=== PATIENT | female | born 1985 ===

== ENCOUNTER 2019-08-15 05:54 | Inpatient (IN) | payer BC ==
[2019-08-15] MEDS ORDERED: Promethazine HCl 25 MG/ML VIAL IM PRN ×2 (06:00→07:30)
[2019-08-15] MEDS ORDERED: Butorphanol Tartrate 1 MG/ML VIAL SLOW IVP PRN (06:00)
[2019-08-15] MEDS ORDERED: Lactated Ringer's 1,000 ML IV SCH (06:00)
[2019-08-15] MEDS ORDERED: Ondansetron PF 4 MG/2 ML Vial IVP PRN ×3 (06:00→11:25)
[2019-08-15] MEDS ORDERED: CEFAZOLIN 2 GM in Premix Bag 1 BAG IVPB SCH (06:00)
[2019-08-15] MEDS ORDERED: hydrALAZINE 20 MG/ML VIAL SLOW IVP PRN ×2 (06:00→11:25)
[2019-08-15 06:16] VITALS: BMI 29.5
[2019-08-15 06:42] LABS: Hemoglobin 12.1 g/dL (12.0-16.0); Mean Corpuscular Hemoglobin 28.9 pg (27.0-31.0); Mean Corpuscular Volume 84.9 fL (78.0-98.0); Mean Platelet Volume 7.1 fL (7.4-10.4); Platelet Count 307 thou/uL (130-400); Red Blood Cell (RBC) Count 4.19 mill/uL (4.20-5.40); White Blood Cell (WBC) Count 6.8 thou/uL (4.8-10.8)
[2019-08-15] MEDS ORDERED: Bicitra 30 ML UDCUP ONE (06:58)
[2019-08-15] MEDS ORDERED: Oxytocin 10 UNITS/ML VIAL ONE ×4 (07:01→08:32)
[2019-08-15] MEDS ORDERED: EPHEDRINE 25 MG/5 ML SYRINGE ONE (07:01)
[2019-08-15] MEDS ORDERED: PHENYLEPHRINE-NS 100 MCG/ML 10 ML SYRINGE ONE (07:01)
[2019-08-15] MEDS ORDERED: MORPHINE 5 MG/10 ML PF VIAL ONE (07:02)
[2019-08-15 07:20] LABS: HBSAg Index 0.19 S/CO (0-0.99); Hep B Surf Ag Non-Reactive S/CO (NonReactive); Syphilis Antibody Nonreactive (Nonreactive); Syphilis Antibody Index 0.03 S/CO (<1.00 Non-Reactive)
[2019-08-15] MEDS ORDERED: Methylergonovine 0.2 MG/ML VIAL ONE (07:24)
[2019-08-15] MEDS ORDERED: Carboprost 250 MCG/ML AMP ONE (07:24)
[2019-08-15] MEDS ORDERED: Ketorolac Tromethamine 30 MG/ML VIAL IVP SCH (07:30)
[2019-08-15] MEDS ORDERED: Naloxone HCl 0.4 mg/ml Vial IVP PRN ×2 (07:30)
[2019-08-15] MEDS ORDERED: Naloxone HCl 0.4 mg/ml Vial IV PRN (07:30)
[2019-08-15] MEDS ORDERED: HYDROmorphone 2 MG/ML VIAL SLOW IVP PRN (07:30)
[2019-08-15] MEDS ORDERED: L&D-Morphine 4 MG/ML VIAL SLOW IVP PRN (07:30)
[2019-08-15] MEDS ORDERED: Communication Order-Pharmacy FS SCH (07:30)
[2019-08-15] MEDS ORDERED: Promethazine HCl 25 MG SUPP PR PRN (07:30)
[2019-08-15] MEDS ORDERED: Meperidine HCl/PF 25 MG/ML VIAL SLOW IVP PRN (07:30)
[2019-08-15] MEDS ORDERED: diphenhydrAMINE 50 MG/ML VIAL IVP PRN (07:30)
[2019-08-15] MEDS ORDERED: Ondansetron HCl/PF 4 MG/2 ML Vial IVP PRN (07:30)
[2019-08-15] MEDS ORDERED: Bicitra 30 ML UDCUP PO SCH (07:45)
[2019-08-15] MEDS ORDERED: Ondansetron PF 4 MG/2 ML Vial ONE (08:14)
[2019-08-15] MEDS ORDERED: Fentanyl 100 MCG/2 ML VIAL ONE (08:14)
[2019-08-15] MEDS ORDERED: Ketorolac Tromethamine 30 MG/ML VIAL ONE (09:13)
[2019-08-15] MEDS: Ketorolac Tromethamine 30 MG/ML VIAL IVP PRN ×3 (09:16→21:10)
[2019-08-15] MEDS ORDERED: Morphine 4 MG/ML VIAL ONE (09:45)
[2019-08-15] MEDS ORDERED: Morphine 4 MG/ML VIAL IV SCH (10:00)
[2019-08-15] MEDS ORDERED: Bisacodyl 10 MG SUPP PR PRN (11:25)
[2019-08-15] MEDS ORDERED: Simethicone Chewable 80 MG TAB PO PRN (11:25)
[2019-08-15] MEDS ORDERED: Lanolin Ointment 7 GM TUBE TOP PRN (11:25)
[2019-08-15] MEDS ORDERED: diphenhydrAMINE 25 MG CAP PO PRN (11:25)
[2019-08-15] MEDS ORDERED: Meperidine HCl/PF 25 MG/ML VIAL IM PRN (11:25)
--- NOTE | 2019-08-15 12:53 | OP ---
DATE OF PROCEDURE: 08/15/2019 PREOPERATIVE DIAGNOSES: 1. Previous section x2. 2. 39 weeks' gestation. POSTOPERATIVE DIAGNOSES: 1. Previous section x2. 2. 39 weeks' gestation. PROCEDURE PERFORMED: Repeat low transverse section. STOCK CRANE OPERATOR: Corinne Maguire MD. COMPLICATIONS: None. ANESTHESIA: Spinal per Dr. Becerra. ESTIMATED BLOOD LOSS: 600 mL. QBL: Pending. OPERATIVE FINDINGS: 1. Low-transverse hysterotomy without extension. 2. No intraabdominal adhesive disease. 3. Vigorous male . Weight and Apgars pending at the time of dictation. 4. Normal-appearing uterus, tubes, and ovaries bilaterally. 5. Uterus firm after delivery of normal placenta with three-vessel cord. DESCRIPTION OF PROCEDURE: The patient was taken back to the OR with IV fluids running. When she was in the OR, spinal anesthesia was obtained, and the patient was placed in dorsal supine position with a left lateral tilt. 2 g of Ancef prophylactic antibiotics were administered through the patient's IV. Ocampo catheter was placed using sterile technique. The abdomen was prepped and draped in normal fashion for section. Surgeons were gowned and gloved. The abdomen was tested, and anesthesia was found to be adequate. A Pfannenstiel skin incision was made with a scalpel. The skin incision was carried down through the subcutaneous tissue to the fascia. Once the fascia was reached, it was incised in the midline and extended superolaterally using curved Kinney scissors. Maris clamps were placed at the superior border of the fascia, which was sharply and bluntly dissected off the rectus abdominis muscles. In similar fashion, Maris clamps were placed at the inferior border of the fascia, which was dissected down towards the level of the pubic symphysis. The rectus muscles and peritoneum were bluntly entered and stretched in the midline. An Jacob O retractor was placed into the peritoneal cavity for retraction, visualization, and protection of the wound. A low transverse hysterotomy was made with a scalpel. The hysterotomy was bluntly entered and stretched using the Verde maneuver. The infant was delivered vertex through the hysterotomy without difficulty. The nose and mouth were suctioned. The cord was doubly clamped and cut. The was handed off to special care nurses in attendance. Cord blood was collected. The placenta was delivered. The uterus was exteriorized, massaged to firm, and cleared of clot and debris. The hysterotomy was then closed using Monocryl suture in a running locked fashion. An additional [id number] suture was placed in each corner of the hysterotomy for hemostasis. Once hemostasis was assured, uterus was noted to be firm. The pelvis was copiously irrigated, dried, and examined. No areas of bleeding were noted at the hysterotomy. The rectus muscles and fascia were examined, and any small areas of bleeding were controlled with Bovie cauterization. The Jacob retractor was removed from the abdominal cavity prior to examining the fascia and muscle. The rectus fascia was reapproximated from corner to corner in a running fashion with PDS suture. Subcutaneous layer was irrigated and dried. Any small areas of bleeding were controlled with Bovie cauterization. The subcutaneous tissue was reapproximated in a series of interrupted plain gut sutures. The skin was closed with 4-0 Monocryl and dressed with Dermabond dressing. The patient tolerated the procedure well. There were no complications. The counts were correct. Job ID: [id number]
[2019-08-15] MEDS ORDERED: Sodium Chloride 0.9% 10 ML ONE (16:20)
[2019-08-15] MEDS ORDERED: HYDROcodone/Acetaminophen 5/325 mg Tablet PO PRN ×3 (17:50→19:30)
[2019-08-15] MEDS: HYDROcodone/Acetaminophen 5/325 mg Tablet PO PRN ×2 (18:03→22:19)
[2019-08-15] MEDS: Ferrous Sulfate 325 MG TAB PO SCH (19:38)
[2019-08-15] MEDS: Docusate Calcium (SURFAK) 240 MG CAP PO SCH (23:29)
[2019-08-16] MEDS ORDERED: Sodium Chloride 0.9% 10 ML ONE (03:59)
[2019-08-16] MEDS: Ketorolac Tromethamine 30 MG/ML VIAL IVP PRN (04:01)
[2019-08-16] MEDS: HYDROcodone/Acetaminophen 5/325 mg Tablet PO PRN ×5 (04:02→22:23)
[2019-08-16 05:58] LABS: Hemoglobin 10.4 g/dL (12.0-16.0); Mean Corpuscular HGB CONC 33.7 g/dL (32.0-36.0); Mean Corpuscular Hemoglobin 29.2 pg (27.0-31.0); Mean Corpuscular Volume 86.7 fL (78.0-98.0); Mean Platelet Volume 7.2 fL (7.4-10.4); Platelet Count 250 thou/uL (130-400); RBC Distribution Width 14.1 % (11.5-14.5); Red Blood Cell (RBC) Count 3.55 mill/uL (4.20-5.40); White Blood Cell (WBC) Count 5.9 thou/uL (4.8-10.8)
--- NOTE | 2019-08-16 07:12 | PDOC.PP ---
Post Progress Note Post Day #: 1 PO intake tolerated: yes Flatus: yes Ambulation: yes Vital Signs (12 hours) Temp Pulse Resp BP Pulse Ox 08/16/19 05:58 97.9 F 53 L 14 124/72 08/16/19 01:48 98.0 F 55 L 14 100/59 L 08/15/19 21:16 97.9 F 65 14 112/70 97 Weight Weight 194 lb Result Diagrams: 08/16/19 05:27 Additional Labs: Post Labs Blood Type O NEGATIVE 08/15/19 07:43 Hep Bs Antigen Non-Reactive S/CO (NonReactive) 08/15/19 06:17 - Assessment/Plan Post op day 1 from repeat c/s. Vitals stable. Doing well. Routine OB post op care.
[2019-08-16] MEDS: Ferrous Sulfate 325 MG TAB PO SCH ×2 (07:21→23:45)
[2019-08-16] MEDS: Prenatal Vitamin 1 TAB PO SCH (08:11)
[2019-08-16] MEDS: Docusate Calcium (SURFAK) 240 MG CAP PO SCH ×2 (08:11→21:08)
[2019-08-16] MEDS ORDERED: Adacel (T-DAP) 0.5 ML SYRINGE IM ONE (09:00)
[2019-08-16] MEDS: Ibuprofen 800 MG TAB PO SCH ×2 (14:06→21:08)
[2019-08-17] MEDS: HYDROcodone/Acetaminophen 5/325 mg Tablet PO PRN ×3 (02:26→11:33)
[2019-08-17] MEDS: Ibuprofen 800 MG TAB PO SCH (05:52)
[2019-08-17] MEDS: Prenatal Vitamin 1 TAB PO SCH (07:19)
[2019-08-17] MEDS: Docusate Calcium (SURFAK) 240 MG CAP PO SCH (07:19)
[2019-08-17] MEDS: Ferrous Sulfate 325 MG TAB PO SCH (07:26)
[2019-08-17 08:27] VITALS: BP 114/66; TEMP 97.8
== END 2019-08-17 13:56 | disposition home or self-care (01) | DRG 788 ==
LOC: L&D 05:54 → 3SW 11:19
PROVIDERS: ADMIT Obstetrics & Gynecology; ATTEND Obstetrics & Gynecology
PROC: 10D00Z1 Extraction of Products of Conception, Low, Open Approach (ICD-10-PCS; principal; 2019-08-15)
PROC: 30233S1 Transfusion of Nonautologous Globulin into Peripheral Vein, Percutaneous Approach (ICD-10-PCS; 2019-08-15)
DX: O34.211 Maternal care for low transverse scar from previous cesarean delivery (principal); Z3A.39 39 weeks gestation of pregnancy; Z37.0 Single live birth
CPT/HCPCS: 36415; 51702; 85027; 85461; 86780; 86850; 86870; 86900; 86901; 87340; 90384; 96372; J0690; J1885; J2175; J2210; J2270; J2274; J2405; J2590; J3010; J3490